=== PATIENT | female | born 1985 | race Hispanic/Latino ===

== ENCOUNTER 2016-09-13 06:44 | Emergency (ER) | payer OTHER ==
[2016-09-13 06:52] VITALS: BP 117/75; PULSE 77; RESP 18; TEMP 98.1; O2SAT 99
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
--- NOTE | 2016-09-13 13:49 | RAD ---
PROCEDURE: Left Hip X-ray Radiographs. HISTORY: pain COMPARISON: None. FINDINGS: BONES: Normal. No fracture. JOINTS: Normal. SOFT TISSUES: Normal. OTHER FINDINGS: None. IMPRESSION: Unremarkable left hip radiographs. Concordant results with the preliminary interpretation rendered by the emergency department physician procedure.
--- NOTE | 2016-09-13 13:50 | RAD ---
PROCEDURE: Radiographs of the left elbow. HISTORY: pain COMPARISON: No prior. FINDINGS: BONES: Normal. No fracture. JOINTS: Normal. No osteoarthritis. SOFT TISSUES: Normal. JOINT EFFUSION: None. OTHER FINDINGS: None IMPRESSION: Unremarkable radiographs of the left elbow. Concordant results with the preliminary interpretation rendered by the emergency department physician procedure.
--- NOTE | 2016-09-13 13:50 | RAD ---
PROCEDURE: Left Knee Radiographs. HISTORY: Posttraumatic pain COMPARISON: None. FINDINGS: BONES: Normal. No fracture. JOINTS: Normal. No osteoarthritis. JOINT EFFUSION: None. OTHER FINDINGS: None. IMPRESSION: No acute findings related to/accounting for the clinical presentation. Concordant results with the preliminary interpretation rendered by the emergency department physician procedure.
== END 2016-09-13 09:48 | disposition home or self-care (01) ==
LOC: H.ER 06:44
DX: T14.8 Other injury of unspecified body region (principal); V03.10XA Pedestrian on foot injured in collision with car, pick-up truck or van in traffic accident, initial encounter; Y92.410 Unspecified street and highway as the place of occurrence of the external cause